=== PATIENT | male | born 1955 | race Caucasian/White ===

== ENCOUNTER 2017-05-23 13:42 | Emergency (ER) | payer OTHER ==
[2017-05-23] MEDS ORDERED: GLUCAGON,HUMAN RECOMB 1 MG INJ SUBCUT ONE (14:26)
--- NOTE | 2017-05-23 14:29 | ER Document Report ---
ED Oral Problem - General Chief Complaint: Sore Throat Stated Complaint: HARD TO SWALLOW Time Seen by Provider: 05/23/17 14:10 Mode of Arrival: Ambulatory Information source: Patient Notes: Patient is a 61-year-old male who presents to the ER today for a feeling of something stuck in his throat. Patient was eating beef tips last night and states that he choked a little bit, getting some stuck in his throat. He states that since that time he has been unable to drink any liquid and keep it down, feeling like something is making it stop on the way down and he has to spit it back up. he denies any drooling, shortness of breath or trouble breathing. He states it is not very painful, just uncomfortable. TRAVEL OUTSIDE OF THE [place] IN LAST 30 DAYS: No - Related Data Allergies/Adverse Reactions: No Known Allergies Allergy (Unverified 05/23/17 13:57) Home Medications: Current Home Medications Unobtainable [Unobtainable] 05/23/17 [History] Past Medical History - General Information source: Patient - Social History Smoking Status: Never Smoker Chew tobacco use (# tins/day): No Frequency of alcohol use: None Drug Abuse: None Family History: Reviewed & Not Pertinent - Past Medical History Cardiac Medical History: Reports: Hx Hypertension Renal/ Medical History: Denies: Hx Peritoneal Dialysis Surgical Hx: Negative - Immunizations Hx Diphtheria, Pertussis, Tetanus Vaccination: Yes Review of Systems - Review of Systems Constitutional: No symptoms reported EENT: See HPI Cardiovascular: No symptoms reported Respiratory: No symptoms reported Gastrointestinal: No symptoms reported Genitourinary: No symptoms reported Male Genitourinary: No symptoms reported Musculoskeletal: No symptoms reported Skin: No symptoms reported Hematologic/Lymphatic: No symptoms reported Neurological/Psychological: No symptoms reported Physical Exam - Vital signs Vitals: Temp Pulse Resp BP Pulse Ox 98.3 F 70 18 120/71 98 05/23/17 13:56 05/23/17 13:56 05/23/17 13:56 05/23/17 13:56 05/23/17 13:56 - Notes Notes: PHYSICAL EXAMINATION: GENERAL: Well-appearing and in no acute distress. HEAD: Atraumatic, normocephalic. EYES: Pupils equal round and reactive to light, extraocular movements intact, sclera anicteric, conjunctiva are normal. ENT: airway patent NECK: Normal range of motion, supple without lymphadenopathy LUNGS: CTAB and equal. No wheezes rales or rhonchi. HEART: Regular rate and rhythm without murmurs ABDOMEN: Soft, no tenderness. No guarding, no rebound BACK: no vertebral tenderness, normal ROM GI/: no CVA tenderness EXTREMITIES: Normal range of motion, no pitting edema. No cyanosis. NEUROLOGICAL: Cranial nerves grossly intact. Normal sensory/motor exams. PSYCH: Normal mood, normal affect. SKIN: Warm, Dry, normal turgor, no rashes or lesions noted Course - Re-evaluation Re-evalutation: 05/23/17 17:07 pt given glucagon, feels better, swallowed an entire pepsi and some water slowly successfully and wants to go home. - Vital Signs Vital signs: Temp Pulse Resp BP Pulse Ox 98.4 F 63 16 122/85 100 05/23/17 17:20 05/23/17 17:20 05/23/17 17:20 05/23/17 17:20 05/23/17 17:20 Discharge - Discharge Clinical Impression: Foreign body in throat Qualifiers: Encounter type: initial encounter Qualified Code(s): T17.208A - Unspecified foreign body in pharynx causing other injury, initial encounter Condition: Stable Disposition: HOME, SELF-CARE Additional Instructions: Return immediately for any new or worsening symptoms. Follow up with primary care provider, call tomorrow to make followup appointment.
--- NOTE | 2017-05-23 15:49 | RADIOLOGY REPORT (SQ) ---
EXAM DESCRIPTION: CHEST PA/LAT COMPLETED DATE/TIME: 05/23/2017 3:35 pm REASON FOR STUDY: something stuck in throat feeling COMPARISON: None. EXAM PARAMETERS: NUMBER OF VIEWS: two views TECHNIQUE: Digital Frontal and Lateral radiographic views of the chest acquired. RADIATION DOSE: NA LIMITATIONS: none FINDINGS: LUNGS AND PLEURA: No opacities, masses or pneumothorax. No pleural effusion. MEDIASTINUM AND HILAR STRUCTURES: No masses or contour abnormalities. HEART AND VASCULAR STRUCTURES: Heart normal size. No evidence for failure. BONES: No acute findings. HARDWARE: None in the chest. OTHER: No other significant finding. IMPRESSION: NO SIGNIFICANT RADIOGRAPHIC FINDING IN THE CHEST. TECHNICAL DOCUMENTATION: JOB ID: [id number] [employer]- All Rights Reserved
[2017-05-23 17:21] VITALS: BP 122/85
== END 2017-05-23 17:39 | disposition home or self-care (01) ==
LOC: ER 13:42
DX: T17.208A Unspecified foreign body in pharynx causing other injury, initial encounter (principal); I10 Essential (primary) hypertension; X58.XXXA Exposure to other specified factors, initial encounter
CPT/HCPCS: 99283; 96372; 71020; J1610

== ENCOUNTER 2018-01-28 09:29 | Day surgery (SDC) | payer OTHER ==
[~2018-01-28 09:29] MED LIST: KETOROLAC TROMETHAMINE 0.45% 4 DROP/0.4 ML DROPERETTE OS PRN
[2018-01-28] MEDS ORDERED: TOBRAMYCIN SULFATE/DEXAMETH OPH OINTMENT 3.5 GM ONE (09:39)
[2018-01-28] MEDS ORDERED: LIDOCAINE 1% INJ-PF (10 MG/ML) 30 ML SDV ONE (09:39)
[2018-01-28] MEDS ORDERED: EPINEPHRINE INJ/PF 1 MG/1 ML AMPULE ONE (09:39)
[2018-01-28] MEDS ORDERED: CHONDR SU A NA/HYALUR INTRAOC KIT (SURGICARE) ONE (09:40)
[2018-01-28] MEDS: BESIFLOXACIN HCL 0.6% OPH SUSP 5 ML BOTTLE OS PRN ×3 (09:51→10:47)
[2018-01-28] MEDS: CYCLOPENTOLATE 0.2%/PHENYLEPHRINE 1% OPH SOLN 2 ML OS PRN ×3 (09:51→10:14)
[2018-01-28] MEDS: TROPICAMIDE 1% OPH SOLN 3 ML OS PRN ×3 (09:51→10:14)
[2018-01-28] MEDS: TETRACAINE HCL 0.5% OPH SOLN 0.6 ML DROPERETTE OS PRN ×3 (09:52→10:23)
[2018-01-28] MEDS ORDERED: FENTANYL CITRATE INJ/PF 100 MCG/2 ML AMPUL ONE (09:56)
[2018-01-28] MEDS ORDERED: MIDAZOLAM 2 MG/2 ML INJ ONE (09:56)
== END 2018-01-28 11:33 | disposition home or self-care (01) ==
LOC: SC 09:29
PROVIDERS: ATTEND Ophthalmology
DX: H25.12 Age-related nuclear cataract, left eye (principal); M19.90 Unspecified osteoarthritis, unspecified site; I10 Essential (primary) hypertension; Z79.899 Other long term (current) drug therapy; Z87.891 Personal history of nicotine dependence
CPT/HCPCS: 66984; V2630; J2250; J3490 ×3; J0171; J3010; 142

== ENCOUNTER 2018-03-04 07:43 | Day surgery (SDC) | payer OTHER ==
[~2018-03-04 07:43] MED LIST changes: +BESIFLOXACIN HCL 0.6% OPH SUSP 5 ML BOTTLE OD PRN; +CHONDR SU A NA/HYALUR INTRAOC KIT (SURGICARE) ONE; +CYCLOPENTOLATE 0.2%/PHENYLEPHRINE 1% OPH SOLN 2 ML OD PRN; +EPINEPHRINE INJ/PF 1 MG/1 ML AMPULE ONE; +FENTANYL CITRATE INJ/PF 100 MCG/2 ML AMPUL ONE; +KETOROLAC TROMETHAMINE 0.45% 4 DROP/0.4 ML DROPERETTE OD PRN; -KETOROLAC TROMETHAMINE 0.45% 4 DROP/0.4 ML DROPERETTE OS PRN; +LIDOCAINE 1% INJ-PF (10 MG/ML) 30 ML SDV ONE; +MIDAZOLAM 2 MG/2 ML INJ ONE; +ONDANSETRON HCL INJ/PF 4 MG/2 ML SDV ONE; +TETRACAINE HCL 0.5% OPH SOLN 0.6 ML DROPERETTE OD PRN; +TOBRAMYCIN SULFATE/DEXAMETH OPH OINTMENT 3.5 GM ONE; +TROPICAMIDE 1% OPH SOLN 3 ML OD PRN
[2018-03-04] MEDS ORDERED: KETOROLAC TROMETHAMINE 0.45% 4 DROP/0.4 ML DROPERETTE ONE (07:51)
[2018-03-04] MEDS ORDERED: TETRACAINE HCL 0.5% OPH SOLN 0.6 ML DROPERETTE ONE (07:51)
[2018-03-04] MEDS: TROPICAMIDE 1% OPH SOLN 3 ML OD PRN ×3 (07:58→08:18)
[2018-03-04] MEDS: BESIFLOXACIN HCL 0.6% OPH SUSP 5 ML BOTTLE OD PRN ×3 (07:58→09:29)
[2018-03-04] MEDS: CYCLOPENTOLATE 0.2%/PHENYLEPHRINE 1% OPH SOLN 2 ML OD PRN ×3 (07:58→08:18)
[2018-03-04] MEDS: TETRACAINE HCL 0.5% OPH SOLN 0.6 ML DROPERETTE OD PRN ×3 (07:59→09:10)
[2018-03-04] MEDS ORDERED: KETOROLAC TROMETHAMINE 0.45% 4 DROP/0.4 ML DROPERETTE OD PRN (08:13)
[2018-03-05] MEDS ORDERED: BESIFLOXACIN HCL 0.6% OPH SUSP 5 ML BOTTLE OD PRN (05:00)
[2018-03-05] MEDS ORDERED: TROPICAMIDE 1% OPH SOLN 3 ML OD PRN (05:00)
[2018-03-05] MEDS ORDERED: TETRACAINE HCL 0.5% OPH SOLN 0.6 ML DROPERETTE OD PRN (05:00)
[2018-03-05] MEDS ORDERED: CYCLOPENTOLATE 0.2%/PHENYLEPHRINE 1% OPH SOLN 2 ML OD PRN (05:00)
[2018-03-05] MEDS ORDERED: KETOROLAC TROMETHAMINE 0.45% 4 DROP/0.4 ML DROPERETTE OD PRN (05:00)
== END 2018-03-04 10:08 | disposition home or self-care (01) ==
LOC: SC 07:43
PROVIDERS: ATTEND Ophthalmology
DX: H25.11 Age-related nuclear cataract, right eye (principal); Z98.42 Cataract extraction status, left eye; M19.90 Unspecified osteoarthritis, unspecified site; I10 Essential (primary) hypertension; Z79.899 Other long term (current) drug therapy; Z87.891 Personal history of nicotine dependence
CPT/HCPCS: 66984; V2630; J2250; J3490 ×3; J0171; J3010; J2405; 142

== ENCOUNTER 2018-03-25 08:58 | Inpatient (IN) | payer OTHER ==
[~2018-03-25 08:58] MED LIST changes: -BESIFLOXACIN HCL 0.6% OPH SUSP 5 ML BOTTLE OD PRN; -CHONDR SU A NA/HYALUR INTRAOC KIT (SURGICARE) ONE; -CYCLOPENTOLATE 0.2%/PHENYLEPHRINE 1% OPH SOLN 2 ML OD PRN; -EPINEPHRINE INJ/PF 1 MG/1 ML AMPULE ONE; -FENTANYL CITRATE INJ/PF 100 MCG/2 ML AMPUL ONE; +GLYCOPYRROLATE INJ 0.4 MG/2 ML VIAL ONE; -KETOROLAC TROMETHAMINE 0.45% 4 DROP/0.4 ML DROPERETTE OD PRN; -LIDOCAINE 1% INJ-PF (10 MG/ML) 30 ML SDV ONE; -MIDAZOLAM 2 MG/2 ML INJ ONE; +NEOSTIGMINE METHYLSULFATE 10 MG/10 ML VIAL ONE; +ROCURONIUM BROMIDE INJ 50 MG/5 ML VIAL IV ONE; +SUCCINYLCHOLINE CHLORIDE INJ 200 MG/10 ML VIAL ONE; -TETRACAINE HCL 0.5% OPH SOLN 0.6 ML DROPERETTE OD PRN; -TOBRAMYCIN SULFATE/DEXAMETH OPH OINTMENT 3.5 GM ONE; -TROPICAMIDE 1% OPH SOLN 3 ML OD PRN
--- NOTE | 2018-03-25 09:13 | ER Document Report ---
ED General - General Chief Complaint: Flank Pain Stated Complaint: URINARY ISSUE Time Seen by Provider: 03/25/18 09:12 Mode of Arrival: Medic Information source: Patient TRAVEL OUTSIDE OF THE [place] IN LAST 30 DAYS: No - HPI Notes: 62-year-old male with a past medical history of hypertension presents to the emergency room today with complaints of fever, right lower quadrant abdominal pain, right sided sciatica, flank pain by ambulance. Patient states he was seen at the OR 3 days ago for a UTI, started on oral Bactrim. Patient was given 975 of Tylenol and ambulance. Reports pain is been getting progressively worse, 9 out of 10 sharp and shooting to right lower quadrant that radiates to right-sided flank area and left-sided flank area. Patient states he did fall while he was at work approximately 1 week ago, states back pain started then with his right-sided numbness and tingling. Did not get checked out by medical provider after he fell. Patient has taken 2 days worth of oral Bactrim for his UTI. States he did not have any further testing done at the OR. Patient states he is been "dribbling" with urination denies any penile drainage. Denies chest pain,palpitations, shortness of breath, dyspnea, nausea, vomiting , diarrhea, hematuria,blurred vision, double vision, loss of vision, speech changes, LH, dizziness, syncope, headaches, wheezing, ST, URI, neck pain, weakness, bowel or bladder dysfunction, saddle anesthesia, numbness or tingling in bilateral upper or lower extremities equally, muscle paralysis, weakness in bilateral upper or lower extremities equally or rash. Denies IV drug use. - Related Data Allergies/Adverse Reactions: No Known Allergies Allergy (Verified 03/04/18 07:54) Past Medical History - General Information source: Patient - Social History Smoking Status: Never Smoker Family History: Reviewed & Not Pertinent - Past Medical History Cardiac Medical History: Reports: Hx Hypertension Denies: Hx Heart Attack Pulmonary Medical History: Denies: Hx Asthma Neurological Medical History: Denies: Hx Cerebrovascular Accident, Hx Seizures Renal/ Medical History: Denies: Hx Peritoneal Dialysis GI Medical History: Denies: Hx Hepatitis, Hx Hiatal Hernia, Hx Ulcer Infectious Medical History: Denies: Hx Hepatitis Past Surgical History: Denies: Hx Open Heart Surgery, Hx Pacemaker - Immunizations Hx Diphtheria, Pertussis, Tetanus Vaccination: Yes Review of Systems - Review of Systems Constitutional: See HPI EENT: No symptoms reported Cardiovascular: No symptoms reported Respiratory: No symptoms reported Gastrointestinal: See HPI Genitourinary: See HPI Male Genitourinary: No symptoms reported Musculoskeletal: No symptoms reported Skin: No symptoms reported Hematologic/Lymphatic: No symptoms reported Neurological/Psychological: No symptoms reported Physical Exam - Vital signs Vitals: Temp Pulse Resp BP Pulse Ox 98.8 F 94 18 128/83 H 94 03/25/18 09:06 03/25/18 09:06 03/25/18 09:06 03/25/18 09:06 03/25/18 09:06 - Notes Notes: PHYSICAL EXAMINATION: GENERAL: Well-appearing, well-nourished and in no acute distress. HEAD: Atraumatic, normocephalic. EYES: Pupils equal round and reactive to light, extraocular movements intact, sclera anicteric, conjunctiva are normal. ENT: Nares patent, oropharynx clear without exudates. Moist mucous membranes. NECK: Normal range of motion, supple without lymphadenopathy LUNGS: Breath sounds clear to auscultation bilaterally and equal. No wheezes rales or rhonchi. HEART: Regular rate and rhythm without murmurs ABDOMEN: Bowel sounds heard in all quadrants Soft, nondistended abdomen. Right lower quadrant tenderness on palpation with rebound. CVA tenderness right greater than left bilaterally with slight guarding, no rebound. no masses appreciated. Musculoskeletal: Normal range of motion, no pitting or edema. No cyanosis. NEUROLOGICAL: Cranial nerves grossly intact. Normal speech, normal gait. Normal sensory, motor exams PSYCH: Normal mood, normal affect. SKIN: Warm, Dry, normal turgor, no rashes or lesions noted. Course - Re-evaluation Re-evalutation: 03/25/18 10:59 62-year-old male who had a fever at home presents for evaluation of right lower quadrant abdominal pain with bilateral flank pain is slightly tachycardic via EMS today. Patient's fever did reduce with 975 of oral Tylenol. given broad- spectrum antibiotics due to meeting SIRS criteria with fever, tachycardia. chest x-ray negative for any acute findings. EKG shows a heart rate of 85, nonspecific ST segment elevations. No STEMI. CBC with a leukocytosis of 17.4 with a shift. Lactic is 1.2. His blood gas shows he is in respiratory alkalosis, creatinine 1.64, BUN normal. cardiac enzymes unremarkable. Urinalysis shows nitrates, hematuria with proteinuria. CT abdomen pelvis with IV and oral contrast shows a right lower lobe infiltrate and pleural effusion as well as a right retroperitoneal air with fluid seen in posterior right colon and cecum that extends up to the liver. Dr. David gonzalez, surgeon, consulted at 1245 for surgical consult for emergent surgery for questionable perforated colon and/or appendix. Dr. Gonzalez at bedside to evaluate patient. Will go to the OR for emergent surgery. All questions and concerns answered by this provider for patient. Patient verbalized understanding of plan of care and agree with plan of care. Patient was admitted under surgery. - Vital Signs Vital signs: Temp Pulse Resp BP Pulse Ox 99.6 F 94 40 H 138/63 H 87 L 03/25/18 14:01 03/25/18 09:06 03/25/18 14:01 03/25/18 14:01 03/25/18 14:01 - Laboratory Result Diagrams: 03/25/18 09:03 03/25/18 09:03 Laboratory results interpreted by me: 03/25/18 03/25/18 03/25/18 09:03 09:03 09:03 WBC 17.4 H RBC 3.88 L Hgb 12.2 L Hct 36.0 L RDW 14.4 H Seg Neuts % (Manual) 89 H Lymphocytes % (Manual) 2 L Abs Neuts (Manual) 15.5 H Abs Lymphs (Manual) 0.3 L Abs Monocytes (Manual) 1.6 H PT 16.0 H VBG pH VBG pCO2 VBG HCO3 Sodium 134.0 L Carbon Dioxide 15 L Creatinine 1.64 H Est GFR ( Amer) 52 L Est GFR (Non-Af Amer) 43 L Glucose 225 H Direct Bilirubin 0.6 H Alkaline Phosphatase 149 H Creatine Kinase 42 L Albumin 3.2 L Urine Protein Urine Nitrite Urine Urobilinogen 03/25/18 03/25/18 09:05 10:05 WBC RBC Hgb Hct RDW Seg Neuts % (Manual) Lymphocytes % (Manual) Abs Neuts (Manual) Abs Lymphs (Manual) Abs Monocytes (Manual) PT VBG pH 7.43 H VBG pCO2 25.7 L VBG HCO3 16.5 L Sodium Carbon Dioxide Creatinine Est GFR ( Amer) Est GFR (Non-Af Amer) Glucose Direct Bilirubin Alkaline Phosphatase Creatine Kinase Albumin Urine Protein 100 H Urine Nitrite POSITIVE H Urine Urobilinogen 4.0 H Discharge - Discharge Clinical Impression: Perforated appendicitis, Peritoneal free air Leukocytosis Qualifiers: Leukocytosis type: bandemia Qualified Code(s): D72.825 - Bandemia Clinical Impression: (Ruled Out): Hemolytic anemia Condition: Good Disposition: ADMITTED INPATIENT Admitting Provider: Surgicalist - Dr. Hernandez [facility] Unit Admitted: OR
[2018-03-25] MEDS ORDERED: MORPHINE SULFATE 10 MG/ML INJ IV ONE (09:25)
[2018-03-25 09:26] LABS: HEMOGLOBIN 12.2 g/dL (13.5-17.0); MEAN CORPUSCULAR HEMOGLOBIN 31.4 pg (27.0-33.4); MEAN CORPUSCULAR HGB CONC 33.8 g/dL (32.0-36.0); MEAN CORPUSCULAR VOLUME 93 fl (80-97); PLATELET COUNT 298 10^3/uL (150-450); RED BLOOD COUNT 3.88 10^6/uL (4.35-5.55); RED CELL DISTRIBUTION WIDTH 14.4 % (11.5-14.0); WHITE BLOOD COUNT 17.4 10^3/uL (4.0-10.5)
[2018-03-25] MEDS ORDERED: CEFEPIME 1 GM/D5W RTU 1 GM/50 ML RTUPB IV ONE (09:26)
[2018-03-25] MEDS ORDERED: PIPERACILLIN/TAZOBACTAM 3.375 GM VIAL IV ONE (09:26)
[2018-03-25 09:29] LABS: INTERNATIONAL RATION (INR) 1.22
[2018-03-25 09:29] LABS: APPEARANCE,URINE SLIGHTLY-CLOUDY; BILIRUBIN,URINE NEGATIVE (NEGATIVE); COLOR,URINE ORANGE; GLUCOSE, URINE NEGATIVE (NEGATIVE); KETONES,URINE NEGATIVE (NEGATIVE); LEUKOCYTE ESTERASE,URINE NEGATIVE (NEGATIVE); NITRITE,URINE POSITIVE (NEGATIVE); PROTEIN,URINE 100 mg/dL (NEGATIVE)
[2018-03-25 09:45] LABS: ALANINE AMINOTRANSFERASE 33 U/L (21-72); ALBUMIN 3.2 g/dL (3.5-5.0); ALKALINE PHOSPHATASE 149 U/L (38-126); ANION GAP 17 (5-19); ASPARTATE AMINO TRANSFERASE 28 U/L (17-59); BILIRUBIN,DIRECT 0.6 mg/dL (0.0-0.4); BILIRUBIN,TOTAL 1.1 mg/dL (0.2-1.3); BLOOD UREA NITROGEN 20 mg/dL (7-20); CALCIUM 8.9 mg/dL (8.4-10.2); CARBON DIOXIDE 15 mmol/L (22-30); CHLORIDE 102 mmol/L (98-107); CREATINE KINASE 42 U/L (55-170); GLUCOSE 225 mg/dL (75-110); POTASSIUM 4.7 mmol/L (3.6-5.0); TOTAL PROTEIN 6.5 g/dL (6.3-8.2)
[2018-03-25 10:06] LABS: ABSOLUTE LYMPHOCYTES# (MANUAL) 0.3 10^3/uL (0.5-4.7); ABSOLUTE MONOCYTES # (MANUAL) 1.6 10^3/uL (0.1-1.4); ABSOLUTE NEUTROPHILS# (MANUAL) 15.5 10^3/uL (1.7-8.2); ANISOCYTOSIS SLIGHT; BASOPHILS % (MANUAL) 0 % (0-2); EOSINOPHILS % (MANUAL) 0 % (0-6); LYMPHOCYTES % (MANUAL) 2 % (13-45); MONOCYTES % (MANUAL) 9 % (3-13); PLATELET COMMENT ADEQUATE; SEGMENTED NEUTROPHILS % (MAN) 89 % (42-78); TOTAL CELLS COUNTED 100
[2018-03-25] MEDS: NORMAL SALINE 1000 ML 1,000 ML IV PRN ×2 (10:16→10:53)
[2018-03-25 10:31] LABS: CREATINE KINASE MB 0.36 ng/mL (<4.55)
[2018-03-25 10:32] LABS: TROPONIN I < 0.012 ng/mL
[2018-03-25 10:38] LABS: VENOUS BLOOD HCO3 16.5 mmol/L (20-32); VENOUS BLOOD PCO2 25.7 mmHg (35-63); VENOUS BLOOD PH 7.43 (7.30-7.42)
--- NOTE | 2018-03-25 10:39 | RADIOLOGY REPORT (SQ) ---
EXAM DESCRIPTION: CHEST SINGLE VIEW COMPLETED DATE/TIME: 03/25/2018 10:25 am REASON FOR STUDY: fever COMPARISON: 05/23/2017 EXAM PARAMETERS: NUMBER OF VIEWS: One view. TECHNIQUE: Single frontal radiographic view of the chest acquired. RADIATION DOSE: NA LIMITATIONS: Shallow inspiration FINDINGS: LUNGS AND PLEURA: No opacities, masses or pneumothorax. No pleural effusion. MEDIASTINUM AND HILAR STRUCTURES: No masses. Contour normal. HEART AND VASCULAR STRUCTURES: Heart accentuated by shallow inspiration. No overt CHF. BONES: No acute findings. HARDWARE: None in the chest. OTHER: No other significant finding. IMPRESSION: The lung haynes are clear. TECHNICAL DOCUMENTATION: JOB ID: [id number] [employer]- All Rights Reserved Reading location - IP/workstation name: [email or web address]
[2018-03-25] MEDS ORDERED: MORPHINE SULFATE 10 MG/ML INJ IV PRN ×2 (10:51→15:13)
[2018-03-25] MEDS ORDERED: NORMAL SALINE 1000 ML 1,000 ML IV PRN (12:49)
--- NOTE | 2018-03-25 13:10 | RADIOLOGY REPORT (SQ) ---
EXAM DESCRIPTION: CT ABD/PELVIS WITH IV ORAL COMPLETED DATE/TIME: 03/25/2018 12:14 pm REASON FOR STUDY: RLQ abd pain with fever 102, bilat flank pain COMPARISON: None. TECHNIQUE: CT scan of the abdomen and pelvis performed using helical scanning technique with dynamic intravenous contrast injection. No oral contrast. Images reviewed with lung, soft tissue, and bone windows. Reconstructed coronal and sagittal MPR images reviewed. Delayed images for evaluation of the urinary system also acquired. All images stored on PACS. All CT scanners at this facility use dose modulation, iterative reconstruction, and/or weight based d osing when appropriate to reduce radiation dose to as low as reasonably achievable (ALARA). [facility]: Dose Right [facility]: CareDose [facility]: Dose Right [facility]: Teradose 4D [facility]: [place] CONTRAST TYPE AND DOSE: contrast/concentration: Isovue 370.00 mg/ml; Total Contrast Delivered: 100.0 ml; Total Saline Delivered: 70.0 ml 100 mL Isovue 370 intravenously RENAL FUNCTION: Creatinine 1.6 RADIATION DOSE: CT Rad equipment meets quality standard of care and radiation dose reduction techniq ues were employed. CTDIvol: 5.1 - 6.3 mGy. DLP: 646 mGy-cm.. LIMITATIONS: None. FINDINGS: LOWER CHEST: Patchy right basilar infiltrate with trace pleural fluid. LIVER: Normal size. No masses. No dilated ducts. SPLEEN: Normal size. No focal lesions. PANCREAS: No masses. No significant calcifications. No adjacent inflammation or peripancreatic fluid collections. Pancreatic duct not dilated. GALLBLADDER: No identified stones by CT criteria. No inflammatory changes to suggest cholecystitis. ADRENAL GLANDS: No significant masses or asymmetry. RIGHT KIDNEY AND URETER: No solid masses. No significant calcifications. No hydronephrosis or hyd roureter. LEFT KIDNEY AND URETER: No solid masses. No significant calcifications. No hydronephrosis or hydr oureter. AORTA AND VESSELS: No AAA. RETROPERITONEUM: On the right retroperitoneal air and fluid is seen posterior to the right colon, ext ending from the cecum upper to the posterior aspect of the liver. At the inferior portion, a 5.2 x 3.5 cm air and fluid collection is seen. Inferior to this portions of and intact appendix are seen. Etiologies may include a perforated appendix or colon. No obvious diverticulae are seen and the pr oximal portion of the appendix unremarkable. No free intraperitoneal air identified. BOWEL AND PERITONEAL CAVITY: see retroperitoneum. Posterior aspect of the right colon contiguous wi th retroperitoneal fluid and air. Nonobstructive bowel appearance. APPENDIX: Proximal portion unremarkable. Distal portion continuous with retroperitoneal air and flui d. PELVIS: No mass. No free fluid. Normal bladder. ABDOMINAL WALL: No masses. No hernias. BONES: No significant or acute findings. OTHER: No other significant finding. IMPRESSION: On the right retroperitoneal air and fluid is seen posterior to the right colon and cecu m, extending upward to the posterior aspect the liver. More focal 5.3 x 3.5 cm collection inferiorly . Right basilar RLL infiltrate and small right pleural effusion. COMMENT: Findings discussed with referringALFREDA Pearson TECHNICAL DOCUMENTATION: JOB ID: [id number] Quality ID # [id number]: Final reports with documentation of one or more dose reduction techniques (e.g., Au tomated exposure control, adjustment of the mA and/or kV according to patient size, use of iterative reconstruction technique) 2010 [employer]- All Rights Reserved Reading location - IP/workstation name: [email or web address]
--- NOTE | 2018-03-25 13:11 | EKG REPORT ---
SEVERITY:- ABNORMAL ECG - SINUS RHYTHM LVH WITH SECONDARY T WAVE CHANGES : Confirmed by: Jovani Warner MD 25-Mar-2018 13:10:39
[2018-03-25] MEDS ORDERED: BUPIVACAINE HCL 0.25 % INJ/PF (2.5 MG/1 ML) 30 ML VIAL ONE (13:49)
--- NOTE | 2018-03-25 14:16 | PDOC H&P ---
History of Present Illness Admission Date/PCP: 03/25/18 13:47 NO LOCALMD History of Present Illness: AMALIA SMITH is a 62 year old male with a 24 hour history of right sided abdominal pain. His pain is sharp and stabbing. It is constant. The patient denies any fevers, chills, nausea, vomiting, chest pain, shortness of breath, headache, dizziness. Patient has had noted malaise and fatigue. He presented to the emergency department due to excruciating, unrelenting pain. Nothing makes his pain better. Movement and palpation make his pain worse. Past Medical History Cardiac Medical History: Reports: Hypertension Denies: Myocardial Infarction Pulmonary Medical History: Denies: Asthma Neurological Medical History: Denies: Seizures GI Medical History: Denies: Hepatitis, Hiatal Hernia Hematology: Denies: Anemia, Sickle Cell Disease Past Surgical History Past Surgical History: Reports: Other - Reconstructive surgery for a broken jaw Denies: Pacemaker Social History Smoking Status: Never Smoker Frequency of Alcohol Use: Occasional Hx Recreational Drug Use: No Family History Family History: Reviewed & Not Pertinent Parental Family History Reviewed: Yes Children Family History Reviewed: Yes Sibling(s) Family History Reviewed.: Yes Medication/Allergy Home Medications: Acetaminophen [Tylenol Extra Strength] 500 mg PO Q4 PRN 01/28/18 Amlodipine Besylate 10 mg PO DAILY 01/28/18 Atenolol 100 mg PO DAILY 01/28/18 Diclofenac Sodium 75 mg PO DAILY 01/28/18 Lisinopril 40 mg PO DAILY 01/28/18 Allergies/Adverse Reactions: No Known Allergies Allergy (Verified 03/04/18 07:54) Review of Systems Constitutional: PRESENT: fatigue. ABSENT: chills, fever(s) Eyes: ABSENT: visual disturbances Ears: ABSENT: hearing changes Nose, Mouth, and Throat: ABSENT: mouth pain Cardiovascular: ABSENT: dyspnea on exertion, palpitations Respiratory: ABSENT: cough, dyspnea, hemoptysis Gastrointestinal: PRESENT: abdominal pain, bloating. ABSENT: nausea, vomiting Genitourinary: ABSENT: dysuria Musculoskeletal: ABSENT: back pain, deformity Integumentary: ABSENT: lesions, pruritus, rash Neurological: ABSENT: abnormal movements, abnormal speech, confusion, dizziness Psychiatric: ABSENT: anxiety, depression, hallucinations Endocrine: ABSENT: cold intolerance, heat intolerance Hematologic/Lymphatic: ABSENT: easy bleeding, easy bruising Physical Exam Vital Signs: Temp Pulse Resp BP Pulse Ox 98.8 F 94 18 128/83 H 94 03/25/18 09:06 03/25/18 09:06 03/25/18 11:00 03/25/18 09:06 03/25/18 11:00 General appearance: PRESENT: mild distress - Abdominal, well-developed, well- nourished Head exam: PRESENT: atraumatic, normocephalic Eye exam: PRESENT: EOMI, PERRLA Mouth exam: PRESENT: moist, neck supple Teeth exam: PRESENT: poor dentation Neck exam: ABSENT: lymphadenopathy, meningismus, tenderness, thyromegaly, tracheal deviation Respiratory exam: PRESENT: clear to auscultation sabina. ABSENT: chest wall tenderness, rhonchi, stridor, tachypnea Cardiovascular exam: PRESENT: RRR Pulses: PRESENT: normal radial pulses Vascular exam: PRESENT: normal capillary refill. ABSENT: pallor GI/Abdominal exam: PRESENT: distended, guarding, tenderness - Right lateral abdomen and flank Extremities exam: ABSENT: clubbing, joint swelling Musculoskeletal exam: ABSENT: tenderness Neurological exam: PRESENT: alert, awake, oriented to person, oriented to place , oriented to time, oriented to situation, CN II-XII grossly intact Psychiatric exam: PRESENT: normal mood. ABSENT: agitated, anxious, depressed Skin exam: ABSENT: cyanosis, erythema, mottled Results Impressions: Abdomen/Pelvis CT 03/25/18 00:00 IMPRESSION: On the right retroperitoneal air and fluid is seen posterior to the right colon and cecum, extending upward to the posterior aspect the liver. More focal 5.3 x 3.5 cm collection inferiorly. Right basilar RLL infiltrate and small right pleural effusion. Chest X-Ray 03/25/18 09:28 IMPRESSION: The lung haynes are clear. Assessment & Plan - Diagnosis (1) Perforated appendicitis Is this a current diagnosis for this admission?: Yes - Inpatient Certification I certify that my determination is in accordance with my understanding of Medicare's requirements for reasonable and necessary INPATIENT services [42 CFR 412.3e].: Yes Medical Necessity: Need for IV Antibiotics, Need for Surgery - Plan Summary Plan Summary: This is a 62-year-old male with right-sided abdominal pain. He is undergone CT scan, which I have reviewed the images personally. He has a large amount of air in the retroperitoneum, in the vicinity of his retrocecal appendix. This likely represents a perforation of his appendix, but could involve the right colon. I have recommended that the patient undergo exploratory laparotomy with possible appendectomy, possible right colon resection. This is been explained to the patient at length. The patient has agreed to the treatment plan. Risks/ benefits discussed, informed consent obtained, and all questions answered.
[2018-03-25] MEDS ORDERED: PROPOFOL INJ 200 MG/20 ML VIAL IV ONE (14:21)
[2018-03-25] MEDS ORDERED: MIDAZOLAM 2 MG/2 ML INJ ONE (14:21)
[2018-03-25] MEDS ORDERED: MORPHINE SULFATE 10 MG/ML INJ ONE (14:21)
[2018-03-25] MEDS ORDERED: FENTANYL CITRATE INJ/PF 250 MCG/5 ML AMPULE ONE (14:21)
[2018-03-25] MEDS ORDERED: ACETAMINOPHEN 100 ML IV ONE (14:21)
[2018-03-25] MEDS ORDERED: OXYCODONE-ACETAMINOPHEN 5-325 MG TABLET PO PRN ×2 (15:13)
[2018-03-25] MEDS ORDERED: PROMETHAZINE HCL INJ 25 MG/1 ML VIAL IV PRN ×2 (15:13)
[2018-03-25] MEDS ORDERED: MEPERIDINE HCL/PF INJ 25 MG/1 ML DISP.SYRIN IV PRN (15:13)
[2018-03-25] MEDS ORDERED: FENTANYL CITRATE INJ/PF 100 MCG/2 ML AMPUL IV PRN ×3 (15:13)
[2018-03-25] MEDS ORDERED: DIPHENHYDRAMINE HCL 50 MG/ML VIAL IV PRN (15:13)
[2018-03-25] MEDS ORDERED: DEXTROSE 40% GEL 15 GM TUBE PO PRN ×2 (15:57)
[2018-03-25] MEDS ORDERED: ONDANSETRON HCL INJ/PF 4 MG/2 ML SDV IV PRN (15:57)
[2018-03-25] MEDS ORDERED: GLUCAGON,HUMAN RECOMB 1 MG INJ SUBCUT PRN (15:57)
[2018-03-25] MEDS ORDERED: DEXTROSE 5%-LACTATED RINGERS 1,000 ML IV PRN (15:57)
[2018-03-25] MEDS ORDERED: DEXTROSE 50%-WATER 25 GM/50 ML DISP.SYRIN IV PRN ×2 (15:57)
[2018-03-25] MEDS ORDERED: PHENOL/SODIUM PHENOLATE 100 SPRAY/177 ML BOTTLE PO PRN (16:42)
[2018-03-25] MEDS: PIPERACILLIN SODIUM/TAZOBACTAM 3.375 GM in NORMAL SALINE 100 ML IV SCH ×2 (17:29→23:56)
[2018-03-25] MEDS: METOPROLOL TARTRATE PF/INJ 5 MG/5 ML SDV IV SCH ×2 (17:33→23:56)
--- NOTE | 2018-03-25 18:47 | Operative Report ---
Nonrecallable Operative Report DATE OF SURGERY: 03/25/18 PREOPERATIVE DIAGNOSIS: Acute abdomen POSTOPERATIVE DIAGNOSIS: 1. cecal perforation at the base of the appendix. 2. Retroperitoneal abscess OPERATION: 1. Exploratory laparotomy. 2. Right hemicolectomy. 3. Drainage of intra-abdominal abscess SURGEON: FAIZA WHITE ANESTHESIA: GA TISSUE REMOVED OR ALTERED: Right hemicolectomy COMPLICATIONS: Perforated cecum with extensive retroperitoneal abscess formation, necessitating right hemicolectomy ESTIMATED BLOOD LOSS: 50 cc PROCEDURE: Drains/implants: 15 [place] round Mark drain in the large retroperitoneal abscess cavity. Procedure in detail: After informed consent was obtained from the patient, he was laid in the supine position in the operating room. The area of the abdomen was prepped and draped in normal sterile fashion. A 10 blade scalpel was used to create an incision in the vertical midline. Dissection was carried down to the fascia using Bovie electrocautery and blunt dissection. The linea alba fascia was incised sharply. The abdomen was entered sharply. Upon entry into the abdomen feculent material and a foul smell was identified. Attention was turned to inspection of the right colon. There was a large inflammatory reaction in/around the cecum and ascending colon. The white line of Toldt was mobilized using a mixture of sharp and blunt dissection. Once this was performed, a large abscess cavity full of feculent material was found in the retroperitoneum extending from the right lower quadrant up toward the liver. The right colon was mobilized medially and the cecum was inspected. There was an obvious perforation on the cecum, at the base of the appendix. I surmise that perforated appendicitis caused these findings. The cecum and right colon were acutely inflamed due to the large abscess cavity. Secondary to this, it was felt that a right hemicolectomy would be necessary. The right colon was further mobilized. The ileocolic artery was clamped and ligated with 2-0 Vicryl suture ligatures. Once the ileocolic artery was divided, blunt dissection was used to mobilize the mesentery off the retroperitoneum. The mesentery was then divided using the LigaSure device. The terminal ileum was then divided using the STUART stapling device, as well as the proximal one third of the transverse colon. The right hemicolectomy specimen was then sent off the field, to pathology. Next, attention was turned to drainage of the large retroperitoneal abscess. The abscess was laid open and irrigated copiously. A drain was then placed within the abscess cavity. The drain was pulled out through a separate stab incision in the right lower quadrant. Attention was then turned to creation of the ileocolic anastomosis. The small bowel was brought in apposition to the transverse colon. The antimesenteric portions of the bowel were brought together and stapled using the STUART stapling device with blue loads. The resultant defect was closed using the same STUART stapler. 2 crotch stitches of 3-0 Vicryl were placed in simple interrupted fashion. The anastomosis was then tested and found to be free of leakage. When this was confirmed, the anastomosis was returned to the abdomen. The abdomen was again washed with multiple liters of saline solution. When this was complete, attention was turned to closure of the fascia. The midline fascia was reapproximated using #1 double-stranded PDS suture in simple running fashion. The skin was loosely approximated with skin shari, in order to pack the wound with Xeroform gauze. Dressings were then fashioned and the procedure was concluded. All sponge, instrument, and needle counts were correct 2. Condition: Fair.
[2018-03-25] MEDS: FAMOTIDINE INJ/PF 20 MG/2 ML SDV IV SCH (21:08)
[2018-03-25] MEDS: HYDROMORPHONE HCL INJ/PF 2 MG/ML AMPULE IV PRN (21:09)
[2018-03-26] MEDS: HYDROMORPHONE HCL INJ/PF 2 MG/ML AMPULE IV PRN ×4 (01:25→19:33)
[2018-03-26 04:18] LABS: ABSOLUTE LYMPHOCYTES (AUTO) 0.6 10^3/uL (0.5-4.7); ABSOLUTE MONOCYTES (AUTO) 0.8 10^3/uL (0.1-1.4); ABSOLUTE NEUT (AUTO) 9.7 10^3/uL (1.7-8.2); BASOPHILS % (AUTO) 0.4 % (0-2); EOSINOPHILS % (AUTO) 0.1 % (0-6); LYMPHOCYTES % (AUTO) 5.4 % (13-45); MEAN CORPUSCULAR HEMOGLOBIN 31.6 pg (27.0-33.4); MEAN CORPUSCULAR HGB CONC 33.3 g/dL (32.0-36.0); MEAN CORPUSCULAR VOLUME 95 fl (80-97); MONOCYTES % (AUTO) 7.4 % (3-13); PLATELET COUNT 289 10^3/uL (150-450); RED BLOOD COUNT 3.48 10^6/uL (4.35-5.55); RED CELL DISTRIBUTION WIDTH 14.9 % (11.5-14.0); SEGMENTED NEUTROPHILS % (AUTO) 86.7 % (42-78); TOTAL CELLS COUNTED % (AUTO) 100 %; WHITE BLOOD COUNT 11.2 10^3/uL (4.0-10.5)
[2018-03-26 04:27] LABS: ALANINE AMINOTRANSFERASE 19 U/L (21-72); ALBUMIN 2.1 g/dL (3.5-5.0); ALKALINE PHOSPHATASE 59 U/L (38-126); ANION GAP 11 (5-19); ASPARTATE AMINO TRANSFERASE 26 U/L (17-59); BILIRUBIN,TOTAL 2.4 mg/dL (0.2-1.3); BLOOD UREA NITROGEN 17 mg/dL (7-20); CALCIUM 7.7 mg/dL (8.4-10.2); CARBON DIOXIDE 17 mmol/L (22-30); CHLORIDE 108 mmol/L (98-107); GLUCOSE 222 mg/dL (75-110); POTASSIUM 5.1 mmol/L (3.6-5.0); SODIUM 136.1 mmol/L (137-145); TOTAL PROTEIN 4.7 g/dL (6.3-8.2)
[2018-03-26] MEDS: METOPROLOL TARTRATE PF/INJ 5 MG/5 ML SDV IV SCH ×4 (05:04→23:30)
[2018-03-26] MEDS: PIPERACILLIN SODIUM/TAZOBACTAM 3.375 GM in NORMAL SALINE 100 ML IV SCH ×4 (05:04→23:30)
[2018-03-26] MEDS: RINGERS SOLUTION,LACTATED 1,000 ML IV PRN ×2 (08:02→17:15)
[2018-03-26] MEDS: FAMOTIDINE INJ/PF 20 MG/2 ML SDV IV SCH ×2 (09:36→21:42)
[2018-03-26] MEDS: ENOXAPARIN SODIUM INJ 40 MG/0.4 ML DISP.SYRIN SUBCUT SCH (09:46)
--- NOTE | 2018-03-26 11:16 | PDOC PROGRESS REPORT ---
Subjective Progress Note for:: 03/26/18 Subjective:: Feels well. No complaints. Reason For Visit: PERFORATED CECUM,RETROPERITONEAL ABSCESS Physical Exam Vital Signs: Temp Pulse Resp BP Pulse Ox 99.6 F 88 21 H 121/63 94 03/26/18 08:00 03/26/18 09:22 03/26/18 09:38 03/26/18 09:38 03/26/18 09:38 Intake & Output 03/25/18 03/26/18 03/27/18 06:59 06:59 06:59 Intake Total 4943 Output Total 1480 325 Balance 3463 -325 Weight 66.8 kg General appearance: PRESENT: no acute distress, cooperative Respiratory exam: PRESENT: rhonchi Cardiovascular exam: PRESENT: RRR GI/Abdominal exam: PRESENT: other - Distended, mild diffuse abdominal tenderness. Wound packing removed. Wound looks very clean with no erythema. Extremities exam: PRESENT: other - No swelling Results Laboratory Results: 03/26/18 03:40 03/26/18 03:40 03/26/18 03/26/18 03:40 03:40 WBC 11.2 H RBC 3.48 L Hgb 11.0 L Hct 33.0 L MCV 95 MCH 31.6 MCHC 33.3 RDW 14.9 H Plt Count 289 Seg Neutrophils % 86.7 H Lymphocytes % 5.4 L Monocytes % 7.4 Eosinophils % 0.1 Basophils % 0.4 Absolute Neutrophils 9.7 H Absolute Lymphocytes 0.6 Absolute Monocytes 0.8 Absolute Eosinophils 0.0 Absolute Basophils 0.0 Sodium 136.1 L Potassium 5.1 H Chloride 108 H Carbon Dioxide 17 L Anion Gap 11 BUN 17 Creatinine 1.37 H Est GFR ( Amer) > 60 Est GFR (Non-Af Amer) 53 L Glucose 222 H Calcium 7.7 L Total Bilirubin 2.4 H AST 26 ALT 19 L Alkaline Phosphatase 59 Total Protein 4.7 L Albumin 2.1 L Impressions: Abdomen/Pelvis CT 03/25/18 00:00 IMPRESSION: On the right retroperitoneal air and fluid is seen posterior to the right colon and cecum, extending upward to the posterior aspect the liver. More focal 5.3 x 3.5 cm collection inferiorly. Right basilar RLL infiltrate and small right pleural effusion. Chest X-Ray 03/25/18 09:28 IMPRESSION: The lung haynes are clear. Assessment & Plan - Diagnosis (1) Perforated appendicitis Is this a current diagnosis for this admission?: Yes Plan: Status post right hemicolectomy. Patient looks reasonably well postoperatively. We will keep the patient in the ICU for close monitoring and fluid adjustments. Will try to get patient out of bed. Await bowel function.
[2018-03-26] MEDS ORDERED: ACETAMINOPHEN 325 MG TABLET ONE (15:46)
[2018-03-27] MEDS: HYDROMORPHONE HCL INJ/PF 2 MG/ML AMPULE IV PRN ×5 (00:12→23:10)
[2018-03-27] MEDS: RINGERS SOLUTION,LACTATED 1,000 ML IV PRN ×3 (01:48→20:20)
[2018-03-27 04:54] LABS: HEMATOCRIT 29.8 % (37.9-51.0); MEAN CORPUSCULAR HEMOGLOBIN 31.5 pg (27.0-33.4); MEAN CORPUSCULAR HGB CONC 33.7 g/dL (32.0-36.0); MEAN CORPUSCULAR VOLUME 94 fl (80-97); PLATELET COUNT 333 10^3/uL (150-450); RED BLOOD COUNT 3.19 10^6/uL (4.35-5.55); RED CELL DISTRIBUTION WIDTH 14.9 % (11.5-14.0); WHITE BLOOD COUNT 14.7 10^3/uL (4.0-10.5)
[2018-03-27 05:17] LABS: ANION GAP 10 (5-19); BLOOD UREA NITROGEN 18 mg/dL (7-20); CALCIUM 8.1 mg/dL (8.4-10.2); CARBON DIOXIDE 21 mmol/L (22-30); CHLORIDE 108 mmol/L (98-107); GLUCOSE 111 mg/dL (75-110); POTASSIUM 4.8 mmol/L (3.6-5.0); SODIUM 138.7 mmol/L (137-145)
[2018-03-27 05:21] LABS: ABSOLUTE MONOCYTES # (MANUAL) 0.7 10^3/uL (0.1-1.4); ABSOLUTE NEUTROPHILS# (MANUAL) 12.9 10^3/uL (1.7-8.2); BAND NEUTROPHILS % (MANUAL) 1 % (3-5); BASOPHILS % (MANUAL) 0 % (0-2); EOSINOPHILS % (MANUAL) 0 % (0-6); LYMPHOCYTES % (MANUAL) 7 % (13-45); MONOCYTES % (MANUAL) 5 % (3-13); SEGMENTED NEUTROPHILS % (MAN) 87 % (42-78); TOTAL CELLS COUNTED 100
[2018-03-27 05:22] LABS: ANISOCYTOSIS SLIGHT; PLATELET COMMENT ADEQUATE; TOXIC GRANULATION SLIGHT
[2018-03-27] MEDS: PIPERACILLIN SODIUM/TAZOBACTAM 3.375 GM in NORMAL SALINE 100 ML IV SCH ×4 (05:23→23:09)
[2018-03-27] MEDS: METOPROLOL TARTRATE PF/INJ 5 MG/5 ML SDV IV SCH ×4 (05:23→23:10)
[2018-03-27] MEDS: FAMOTIDINE INJ/PF 20 MG/2 ML SDV IV SCH ×2 (09:26→21:36)
[2018-03-27] MEDS: ENOXAPARIN SODIUM INJ 40 MG/0.4 ML DISP.SYRIN SUBCUT SCH (09:27)
[2018-03-27 11:50] LABS: BILIRUBIN,DIRECT 2.1 mg/dL (0.0-0.4)
[2018-03-27] MEDS: ACETAMINOPHEN SOLN 325 MG/10.15 ML UDCUP PO PRN (12:09)
--- NOTE | 2018-03-27 18:39 | PDOC PROGRESS REPORT ---
Subjective Progress Note for:: 03/27/18 Subjective:: Fells better. Claims abdomen less distended Reason For Visit: PERFORATED CECUM,RETROPERITONEAL ABSCESS Physical Exam Vital Signs: Temp Pulse Resp BP Pulse Ox 99.1 F 93 22 H 130/76 H 96 03/27/18 16:00 03/27/18 10:00 03/27/18 17:39 03/27/18 17:39 03/27/18 17:39 Intake & Output 03/26/18 03/27/18 03/28/18 06:59 06:59 06:59 Intake Total 4943 2974 Output Total 1480 1970 810 Balance 3463 1004 -810 Weight 66.8 kg 67.7 kg Exam: NGT 500 ccs total past 24 hrs but appears to be decreasing past few hrs Abd soft with some distention Claims he passed some flatus Results Laboratory Results: 03/27/18 04:15 03/27/18 04:15 03/27/18 03/27/18 04:15 04:15 WBC 14.7 H RBC 3.19 L Hgb 10.0 L Hct 29.8 L MCV 94 MCH 31.5 MCHC 33.7 RDW 14.9 H Plt Count 333 Seg Neutrophils % Not Reportable Lymphocytes % Not Reportable Monocytes % Not Reportable Eosinophils % Not Reportable Basophils % Not Reportable Absolute Neutrophils Not Reportable Absolute Lymphocytes Not Reportable Absolute Monocytes Not Reportable Absolute Eosinophils Not Reportable Absolute Basophils Not Reportable Sodium 138.7 Potassium 4.8 Chloride 108 H Carbon Dioxide 21 L Anion Gap 10 BUN 18 Creatinine 1.18 Est GFR ( Amer) > 60 Est GFR (Non-Af Amer) > 60 Glucose 111 H Calcium 8.1 L Impressions: Abdomen/Pelvis CT 03/25/18 00:00 IMPRESSION: On the right retroperitoneal air and fluid is seen posterior to the right colon and cecum, extending upward to the posterior aspect the liver. More focal 5.3 x 3.5 cm collection inferiorly. Right basilar RLL infiltrate and small right pleural effusion. Chest X-Ray 03/25/18 09:28 IMPRESSION: The lung haynes are clear. Assessment & Plan - Time Time Spent with patient: 15-24 minutes - Plan Summary Plan Summary: Keep NGT for now. OK to have ice chips,popsicle Continue IV antibiotics OK to downgrade to IMCU
[2018-03-27] MEDS: KETOROLAC TROMETHAMINE INJ/PF 30 MG/1 ML SDV IV PRN (20:20)
[2018-03-28] MEDS: PIPERACILLIN SODIUM/TAZOBACTAM 3.375 GM in NORMAL SALINE 100 ML IV SCH ×3 (05:18→18:22)
[2018-03-28] MEDS: METOPROLOL TARTRATE PF/INJ 5 MG/5 ML SDV IV SCH ×3 (05:18→18:22)
[2018-03-28] MEDS: RINGERS SOLUTION,LACTATED 1,000 ML IV PRN (06:32)
[2018-03-28] MEDS: KETOROLAC TROMETHAMINE INJ/PF 30 MG/1 ML SDV IV PRN ×2 (06:59→15:34)
[2018-03-28] MEDS: ENOXAPARIN SODIUM INJ 40 MG/0.4 ML DISP.SYRIN SUBCUT SCH (09:41)
[2018-03-28] MEDS: FAMOTIDINE INJ/PF 20 MG/2 ML SDV IV SCH ×2 (09:41→21:54)
--- NOTE | 2018-03-28 15:58 | PDOC PROGRESS REPORT ---
Subjective Progress Note for:: 03/28/18 Subjective:: + flatus and BM Reason For Visit: PERFORATED CECUM,RETROPERITONEAL ABSCESS Physical Exam Vital Signs: Temp Pulse Resp BP Pulse Ox 97.4 F 78 16 138/73 H 98 03/28/18 11:41 03/28/18 15:00 03/28/18 11:41 03/28/18 11:41 03/28/18 11:41 Intake & Output 03/27/18 03/28/18 03/29/18 06:59 06:59 06:59 Intake Total 2974 2956 74 Output Total 1970 1736 Balance 1004 1220 74 Weight 67.7 kg 66.5 kg Exam: Abd is slightly distended but soft with mild tenderness. Incision dressing is dry with small bloody stain inferior aspect. NGT drainage about 200 ccs since this am. Results Laboratory Results: 03/27/18 04:15 03/27/18 04:15 Impressions: Abdomen/Pelvis CT 03/25/18 00:00 IMPRESSION: On the right retroperitoneal air and fluid is seen posterior to the right colon and cecum, extending upward to the posterior aspect the liver. More focal 5.3 x 3.5 cm collection inferiorly. Right basilar RLL infiltrate and small right pleural effusion. Chest X-Ray 03/25/18 09:28 IMPRESSION: The lung haynes are clear. Assessment & Plan - Time Time Spent with patient: 15-24 minutes - Plan Summary Plan Summary: Possible D/C NGT later today if NGT drainage not >200. Continue hydration and IV antibiotics. Recheck CBC BMP in am
[2018-03-29] MEDS: PIPERACILLIN SODIUM/TAZOBACTAM 3.375 GM in NORMAL SALINE 100 ML IV SCH ×5 (00:10→23:07)
[2018-03-29] MEDS: METOPROLOL TARTRATE PF/INJ 5 MG/5 ML SDV IV SCH ×5 (00:11→23:03)
[2018-03-29] MEDS: KETOROLAC TROMETHAMINE INJ/PF 30 MG/1 ML SDV IV PRN ×2 (00:11→21:03)
[2018-03-29] MEDS: RINGERS SOLUTION,LACTATED 1,000 ML IV PRN ×3 (03:26→23:08)
[2018-03-29 04:01] LABS: ABSOLUTE BASOPHILS # (AUTO) 0.1 10^3/uL (0.0-0.2); ABSOLUTE EOSINOPHILS # (AUTO) 0.2 10^3/uL (0.0-0.6); ABSOLUTE LYMPHOCYTES (AUTO) 0.9 10^3/uL (0.5-4.7); ABSOLUTE MONOCYTES (AUTO) 0.7 10^3/uL (0.1-1.4); ABSOLUTE NEUT (AUTO) 11.8 10^3/uL (1.7-8.2); BASOPHILS % (AUTO) 0.5 % (0-2); EOSINOPHILS % (AUTO) 1.6 % (0-6); HEMATOCRIT 30.5 % (37.9-51.0); HEMOGLOBIN 10.3 g/dL (13.5-17.0); LYMPHOCYTES % (AUTO) 6.6 % (13-45); MEAN CORPUSCULAR HEMOGLOBIN 31.6 pg (27.0-33.4); MEAN CORPUSCULAR HGB CONC 33.7 g/dL (32.0-36.0); MEAN CORPUSCULAR VOLUME 94 fl (80-97); MONOCYTES % (AUTO) 4.9 % (3-13); PLATELET COUNT 500 10^3/uL (150-450); RED BLOOD COUNT 3.26 10^6/uL (4.35-5.55); RED CELL DISTRIBUTION WIDTH 14.7 % (11.5-14.0); SEGMENTED NEUTROPHILS % (AUTO) 86.4 % (42-78); TOTAL CELLS COUNTED % (AUTO) 100 %; WHITE BLOOD COUNT 13.7 10^3/uL (4.0-10.5)
[2018-03-29 04:21] LABS: ANION GAP 13 (5-19); BLOOD UREA NITROGEN 23 mg/dL (7-20); CALCIUM 8.3 mg/dL (8.4-10.2); CARBON DIOXIDE 19 mmol/L (22-30); CHLORIDE 114 mmol/L (98-107); GLUCOSE 109 mg/dL (75-110); POTASSIUM 4.1 mmol/L (3.6-5.0); SODIUM 146.3 mmol/L (137-145)
[2018-03-29] MEDS: HYDROMORPHONE HCL INJ/PF 2 MG/ML AMPULE IV PRN ×4 (05:26→23:08)
[2018-03-29] MEDS: ENOXAPARIN SODIUM INJ 40 MG/0.4 ML DISP.SYRIN SUBCUT SCH (09:53)
[2018-03-29] MEDS: FAMOTIDINE INJ/PF 20 MG/2 ML SDV IV SCH ×2 (09:54→21:03)
--- NOTE | 2018-03-29 14:25 | PDOC PROGRESS REPORT ---
Subjective Progress Note for:: 03/29/18 Subjective:: mild abdominal pains +BM Reason For Visit: PERFORATED CECUM,RETROPERITONEAL ABSCESS Physical Exam Vital Signs: Temp Pulse Resp BP Pulse Ox 97.9 F 69 23 H 138/72 H 94 03/29/18 12:00 03/29/18 07:23 03/29/18 04:00 03/29/18 11:23 03/29/18 08:11 Intake & Output 03/28/18 03/29/18 03/30/18 06:59 06:59 06:59 Intake Total 2956 4536 Output Total 1736 1310 0 Balance 1220 3226 0 Weight 66.5 kg 65.6 kg Exam: abd is mildly distended but soft with minimal incisional tenderness. NGT small drainage-Pulled out RAMILA drain no drainage-Pulled out Results Laboratory Results: 03/29/18 03:42 03/29/18 03:42 03/29/18 03/29/18 03:42 03:42 WBC 13.7 H RBC 3.26 L Hgb 10.3 L Hct 30.5 L MCV 94 MCH 31.6 MCHC 33.7 RDW 14.7 H Plt Count 500 H Seg Neutrophils % 86.4 H Lymphocytes % 6.6 L Monocytes % 4.9 Eosinophils % 1.6 Basophils % 0.5 Absolute Neutrophils 11.8 H Absolute Lymphocytes 0.9 Absolute Monocytes 0.7 Absolute Eosinophils 0.2 Absolute Basophils 0.1 Sodium 146.3 H Potassium 4.1 Chloride 114 H Carbon Dioxide 19 L Anion Gap 13 BUN 23 H Creatinine 1.36 H Est GFR ( Amer) > 60 Est GFR (Non-Af Amer) 53 L Glucose 109 Calcium 8.3 L Impressions: Abdomen/Pelvis CT 03/25/18 00:00 IMPRESSION: On the right retroperitoneal air and fluid is seen posterior to the right colon and cecum, extending upward to the posterior aspect the liver. More focal 5.3 x 3.5 cm collection inferiorly. Right basilar RLL infiltrate and small right pleural effusion. Chest X-Ray 03/25/18 09:28 IMPRESSION: The lung haynes are clear. Assessment & Plan - Time Time Spent with patient: 15-24 minutes - Plan Summary Plan Summary: Start Clears OOB ambulate Continue IV antibiotics
[2018-03-30] MEDS: HYDROMORPHONE HCL INJ/PF 2 MG/ML AMPULE IV PRN ×3 (03:26→22:18)
[2018-03-30] MEDS: METOPROLOL TARTRATE PF/INJ 5 MG/5 ML SDV IV SCH ×4 (05:21→23:24)
[2018-03-30] MEDS: PIPERACILLIN SODIUM/TAZOBACTAM 3.375 GM in NORMAL SALINE 100 ML IV SCH ×4 (05:22→23:26)
--- NOTE | 2018-03-30 07:26 | RADIOLOGY REPORT (SQ) ---
EXAM DESCRIPTION: XR ABDOMEN 1 VIEW (KUB) CLINICAL HISTORY: 62 years Male, Increased flank pain COMPARISON: None. NUMBER OF VIEWS/TECHNIQUE: 1 FINDINGS: Moderate gaseous small bowel dilation predominantly in the left paracentral abdomen measuring up to 3.5 cm in diameter. No suspicious calcification. Midline surgical clips. Atherosclerosis. Grossly intact skeletal structures. IMPRESSION: Small bowel ileus pattern; differential diagnosis includes low-grade obstruction.
[2018-03-30] MEDS: RINGERS SOLUTION,LACTATED 1,000 ML IV PRN ×2 (08:21→20:32)
[2018-03-30 08:53] LABS: HEMATOCRIT 30.7 % (37.9-51.0); HEMOGLOBIN 10.3 g/dL (13.5-17.0); MEAN CORPUSCULAR HEMOGLOBIN 31.1 pg (27.0-33.4); MEAN CORPUSCULAR HGB CONC 33.6 g/dL (32.0-36.0); MEAN CORPUSCULAR VOLUME 93 fl (80-97); PLATELET COUNT 627 10^3/uL (150-450); RED BLOOD COUNT 3.32 10^6/uL (4.35-5.55); RED CELL DISTRIBUTION WIDTH 14.6 % (11.5-14.0); WHITE BLOOD COUNT 11.9 10^3/uL (4.0-10.5)
[2018-03-30 09:11] LABS: ALANINE AMINOTRANSFERASE 44 U/L (21-72); ALBUMIN 2.5 g/dL (3.5-5.0); ALKALINE PHOSPHATASE 141 U/L (38-126); ANION GAP 10 (5-19); ASPARTATE AMINO TRANSFERASE 50 U/L (17-59); BILIRUBIN,DIRECT 1.3 mg/dL (0.0-0.4); BILIRUBIN,TOTAL 1.6 mg/dL (0.2-1.3); BLOOD UREA NITROGEN 15 mg/dL (7-20); CARBON DIOXIDE 22 mmol/L (22-30); CHLORIDE 109 mmol/L (98-107); GLUCOSE 139 mg/dL (75-110); POTASSIUM 3.9 mmol/L (3.6-5.0); TOTAL PROTEIN 5.7 g/dL (6.3-8.2)
[2018-03-30 09:21] LABS: ABSOLUTE LYMPHOCYTES# (MANUAL) 0.8 10^3/uL (0.5-4.7); ABSOLUTE MONOCYTES # (MANUAL) 0.6 10^3/uL (0.1-1.4); ABSOLUTE NEUTROPHILS# (MANUAL) 10.2 10^3/uL (1.7-8.2); BASOPHILS % (MANUAL) 0 % (0-2); EOSINOPHILS % (MANUAL) 2 % (0-6); HYPOCHROMASIA 1+; LYMPHOCYTES % (MANUAL) 6 % (13-45); METAMYELOCYTES % (MANUAL) 1 % (0); MONOCYTES % (MANUAL) 5 % (3-13); PLATELET CLUMPS PRESENT; SEGMENTED NEUTROPHILS % (MAN) 85 % (42-78); STOMATOCYTES 1+; TOTAL CELLS COUNTED 100; TOXIC GRANULATION SLIGHT
[2018-03-30] MEDS: FAMOTIDINE INJ/PF 20 MG/2 ML SDV IV SCH ×2 (09:23→22:18)
[2018-03-30] MEDS: ENOXAPARIN SODIUM INJ 40 MG/0.4 ML DISP.SYRIN SUBCUT SCH (09:23)
[2018-03-30] MEDS: KETOROLAC TROMETHAMINE INJ/PF 30 MG/1 ML SDV IV PRN ×2 (09:47→20:31)
--- NOTE | 2018-03-30 10:04 | PDOC PROGRESS REPORT ---
Subjective Progress Note for:: 03/30/18 Subjective:: Postoperative day 5; still in the ICU; transferring bed to chair; was tolerating a diet but now feels full. Reason For Visit: PERFORATED CECUM,RETROPERITONEAL ABSCESS Physical Exam Vital Signs: Temp Pulse Resp BP Pulse Ox 100.5 F H 89 18 150/85 H 95 03/30/18 08:00 03/30/18 08:14 03/30/18 08:03 03/30/18 08:03 03/30/18 08:03 Intake & Output 03/29/18 03/30/18 03/31/18 06:59 06:59 06:59 Intake Total 4536 2973 350 Output Total 1310 825 125 Balance 3226 2148 225 Weight 65.6 kg 69.2 kg General appearance: PRESENT: mild distress, other - Awake alert oriented, anxious GI/Abdominal exam: PRESENT: other - Distended, tympanitic appropriately tender no peritoneal signs no rigidity midline dressing in the right lower quadrant drain sites look satisfactory. Results Laboratory Results: 03/30/18 08:37 03/30/18 08:37 03/30/18 03/30/18 08:37 08:37 WBC 11.9 H RBC 3.32 L Hgb 10.3 L Hct 30.7 L MCV 93 MCH 31.1 MCHC 33.6 RDW 14.6 H Plt Count 627 H Seg Neutrophils % Not Reportable Lymphocytes % Not Reportable Monocytes % Not Reportable Eosinophils % Not Reportable Basophils % Not Reportable Absolute Neutrophils Not Reportable Absolute Lymphocytes Not Reportable Absolute Monocytes Not Reportable Absolute Eosinophils Not Reportable Absolute Basophils Not Reportable Sodium 141.0 Potassium 3.9 Chloride 109 H Carbon Dioxide 22 Anion Gap 10 BUN 15 Creatinine 1.23 Est GFR ( Amer) > 60 Est GFR (Non-Af Amer) > 60 Glucose 139 H Calcium 8.0 L Total Bilirubin 1.6 H AST 50 ALT 44 Alkaline Phosphatase 141 H Total Protein 5.7 L Albumin 2.5 L Impressions: Abdomen/Pelvis CT 03/25/18 00:00 IMPRESSION: On the right retroperitoneal air and fluid is seen posterior to the right colon and cecum, extending upward to the posterior aspect the liver. More focal 5.3 x 3.5 cm collection inferiorly. Right basilar RLL infiltrate and small right pleural effusion. Chest X-Ray 03/25/18 09:28 IMPRESSION: The lung haynes are clear. KUB X-Ray 03/30/18 06:00 IMPRESSION: Small bowel ileus pattern; differential diagnosis includes low-grade obstruction. Assessment & Plan - Diagnosis (1) Perforated appendicitis Is this a current diagnosis for this admission?: Yes Plan: Right hemicolectomy with ileal- colostomy, stapled anastomosis, peritoneal washout, drain placement, now with drain removed, still on IV antibiotics, leukocytosis resolving, hyperbilirubinemia resolving; mild thrombocytosis Postoperative ileus Recommendations: 1. Address ileus by increasing physical activity, decreasing narcotic use, increasing Toradol use. 2. We will start low molecular weight heparin daily to address thrombocytosis 3. Patient safe for transfer to stepdown unit.
[2018-03-30] MEDS ORDERED: FUROSEMIDE INJ/PF 20 MG/2 ML SDV IV ONE (13:30)
[2018-03-30] MEDS: ACETAMINOPHEN SOLN 325 MG/10.15 ML UDCUP PO PRN (16:56)
[2018-03-31] MEDS: HYDROMORPHONE HCL INJ/PF 2 MG/ML AMPULE IV PRN ×2 (02:33→05:30)
[2018-03-31] MEDS: KETOROLAC TROMETHAMINE INJ/PF 30 MG/1 ML SDV IV PRN ×3 (04:25→22:07)
[2018-03-31] MEDS: PIPERACILLIN SODIUM/TAZOBACTAM 3.375 GM in NORMAL SALINE 100 ML IV SCH ×4 (05:30→23:04)
[2018-03-31] MEDS: METOPROLOL TARTRATE PF/INJ 5 MG/5 ML SDV IV SCH (05:30)
[2018-03-31] MEDS: FAMOTIDINE INJ/PF 20 MG/2 ML SDV IV SCH ×2 (09:13→21:47)
[2018-03-31] MEDS: ENOXAPARIN SODIUM INJ 40 MG/0.4 ML DISP.SYRIN SUBCUT SCH (09:13)
[2018-03-31] MEDS: DOCUSATE SODIUM 100 MG CAPSULE PO SCH ×2 (10:14→17:27)
[2018-03-31] MEDS: RINGERS SOLUTION,LACTATED 1,000 ML IV PRN ×2 (10:16→21:46)
--- NOTE | 2018-03-31 10:45 | RADIOLOGY REPORT (SQ) ---
EXAM DESCRIPTION: KUB/ABDOMEN (SINGLE VIEW) COMPLETED DATE/TIME: 03/31/2018 10:25 am REASON FOR STUDY: distention COMPARISON: 03/30/2018 NUMBER OF VIEWS: One view. TECHNIQUE: Supine radiographic image of the abdomen acquired. LIMITATIONS: None. FINDINGS: BOWEL GAS PATTERN: Persistent mildly dilated loops of small bowel primarily left upper aubrie drant. There is gas and fecal material in the colon. CALCIFICATIONS: No suspicious calcifications. SOFT TISSUES: No gross mass or suggestion of organomegaly. HARDWARE: Midline skin shari. BONES: No bone lesions or fracture. OTHER: No other significant finding. IMPRESSION: Postoperative ileus. Continued follow-up is recommended. Reading location - IP/workstation name: [email or web address]
--- NOTE | 2018-03-31 12:09 | PDOC PROGRESS REPORT ---
Subjective Progress Note for:: 03/31/18 Reason For Visit: PERFORATED CECUM,RETROPERITONEAL ABSCESS Physical Exam Vital Signs: Temp Pulse Resp BP Pulse Ox 97.5 F 81 18 137/64 H 98 03/31/18 11:20 03/31/18 11:20 03/31/18 11:20 03/31/18 11:20 03/31/18 11:20 Intake & Output 03/30/18 03/31/18 04/01/18 06:59 06:59 06:59 Intake Total 2973 2981 Output Total 825 1050 Balance 2148 1931 Weight 69.2 kg 71.8 kg Results Laboratory Results: 03/30/18 08:37 03/30/18 08:37 Impressions: Abdomen/Pelvis CT 03/25/18 00:00 IMPRESSION: On the right retroperitoneal air and fluid is seen posterior to the right colon and cecum, extending upward to the posterior aspect the liver. More focal 5.3 x 3.5 cm collection inferiorly. Right basilar RLL infiltrate and small right pleural effusion. Chest X-Ray 03/25/18 09:28 IMPRESSION: The lung haynes are clear. KUB X-Ray 03/31/18 00:00 IMPRESSION: Postoperative ileus. Continued follow-up is recommended. Assessment & Plan - Diagnosis (1) Perforated appendicitis Is this a current diagnosis for this admission?: Yes - Plan Summary Plan Summary: This is a 62-year-old male status post right hemicolectomy for perforated appendicitis with a large retroperitoneal abscess. The patient is improving. He reports that his abdominal distention has lessened. He reports having 2 bowel movements overnight and passing "lots of gas ". The patient is requesting a diet today. He denies any nausea or vomiting. I will advance the patient to a full liquid diet. I have encouraged ambulation and pulmonary toilet. Change midline dressing daily and as needed.
[2018-03-31] MEDS: HYDROCODONE/ACETAMINOPHEN 10-325 MG TABLET PO PRN ×3 (12:46→23:04)
[2018-03-31] MEDS: ATENOLOL 50 MG TABLET PO SCH (12:47)
[2018-04-01] MEDS: HYDROCODONE/ACETAMINOPHEN 10-325 MG TABLET PO PRN ×3 (02:41→20:28)
[2018-04-01] MEDS: PIPERACILLIN SODIUM/TAZOBACTAM 3.375 GM in NORMAL SALINE 100 ML IV SCH ×2 (05:21→12:56)
[2018-04-01 05:29] LABS: HEMATOCRIT 27.4 % (37.9-51.0); HEMOGLOBIN 9.3 g/dL (13.5-17.0); MEAN CORPUSCULAR HEMOGLOBIN 31.1 pg (27.0-33.4); MEAN CORPUSCULAR HGB CONC 33.8 g/dL (32.0-36.0); MEAN CORPUSCULAR VOLUME 92 fl (80-97); PLATELET COUNT 640 10^3/uL (150-450); RED BLOOD COUNT 2.97 10^6/uL (4.35-5.55); RED CELL DISTRIBUTION WIDTH 14.5 % (11.5-14.0); WHITE BLOOD COUNT 10.9 10^3/uL (4.0-10.5)
[2018-04-01 05:46] LABS: ANION GAP 11 (5-19); BLOOD UREA NITROGEN 11 mg/dL (7-20); CALCIUM 7.9 mg/dL (8.4-10.2); CARBON DIOXIDE 23 mmol/L (22-30); CHLORIDE 106 mmol/L (98-107); GLUCOSE 131 mg/dL (75-110); POTASSIUM 4.2 mmol/L (3.6-5.0); SODIUM 139.7 mmol/L (137-145)
[2018-04-01 06:04] LABS: ABSOLUTE LYMPHOCYTES# (MANUAL) 0.7 10^3/uL (0.5-4.7); ABSOLUTE MONOCYTES # (MANUAL) 0.4 10^3/uL (0.1-1.4); ABSOLUTE NEUTROPHILS# (MANUAL) 9.7 10^3/uL (1.7-8.2); BAND NEUTROPHILS % (MANUAL) 2 % (3-5); BASOPHILS % (MANUAL) 0 % (0-2); EOSINOPHILS % (MANUAL) 1 % (0-6); LYMPHOCYTES % (MANUAL) 6 % (13-45); METAMYELOCYTES % (MANUAL) 2 % (0); MONOCYTES % (MANUAL) 4 % (3-13); SEGMENTED NEUTROPHILS % (MAN) 85 % (42-78); TOTAL CELLS COUNTED 100
[2018-04-01 06:06] LABS: ANISOCYTOSIS SLIGHT; HYPOCHROMASIA SLIGHT; TOXIC GRANULATION SLIGHT
[2018-04-01 06:07] LABS: PLATELET COMMENT INCREASED
[2018-04-01] MEDS: KETOROLAC TROMETHAMINE INJ/PF 30 MG/1 ML SDV IV PRN ×2 (08:48→16:53)
[2018-04-01] MEDS ORDERED: DIPHENHYDRAMINE HCL 50 MG/ML VIAL IV PRN (08:56)
[2018-04-01] MEDS ORDERED: FUROSEMIDE INJ/PF 40 MG/4 ML SDV IV ONE (09:15)
[2018-04-01] MEDS ORDERED: ONDANSETRON HCL INJ/PF 4 MG/2 ML SDV IV PRN (09:30)
[2018-04-01] MEDS: ENOXAPARIN SODIUM INJ 40 MG/0.4 ML DISP.SYRIN SUBCUT SCH (09:40)
[2018-04-01] MEDS: FAMOTIDINE INJ/PF 20 MG/2 ML SDV IV SCH ×2 (09:40→21:19)
[2018-04-01] MEDS: DOCUSATE SODIUM 100 MG CAPSULE PO SCH ×2 (09:40→17:25)
[2018-04-01] MEDS: ATENOLOL 50 MG TABLET PO SCH (12:56)
--- NOTE | 2018-04-01 16:57 | PDOC PROGRESS REPORT ---
Subjective Progress Note for:: 04/01/18 Subjective:: denies any pains. + BM Reason For Visit: PERFORATED CECUM,RETROPERITONEAL ABSCESS Physical Exam Vital Signs: Temp Pulse Resp BP Pulse Ox 98.4 F 80 16 135/73 H 100 04/01/18 11:55 04/01/18 11:55 04/01/18 11:55 04/01/18 11:55 04/01/18 11:55 Intake & Output 03/31/18 04/01/18 04/02/18 06:59 06:59 06:59 Intake Total 2981 2830 Output Total 1050 Balance 1931 2830 Weight 71.8 kg 74.8 kg Exam: abd is still distended but soft and non tender Results Laboratory Results: 04/01/18 05:08 04/01/18 05:08 04/01/18 04/01/18 05:08 05:08 WBC 10.9 H RBC 2.97 L Hgb 9.3 L Hct 27.4 L MCV 92 MCH 31.1 MCHC 33.8 RDW 14.5 H Plt Count 640 H Seg Neutrophils % Not Reportable Lymphocytes % Not Reportable Monocytes % Not Reportable Eosinophils % Not Reportable Basophils % Not Reportable Absolute Neutrophils Not Reportable Absolute Lymphocytes Not Reportable Absolute Monocytes Not Reportable Absolute Eosinophils Not Reportable Absolute Basophils Not Reportable Sodium 139.7 Potassium 4.2 Chloride 106 Carbon Dioxide 23 Anion Gap 11 BUN 11 Creatinine 1.09 Est GFR ( Amer) > 60 Est GFR (Non-Af Amer) > 60 Glucose 131 H Calcium 7.9 L Impressions: Abdomen/Pelvis CT 03/25/18 00:00 IMPRESSION: On the right retroperitoneal air and fluid is seen posterior to the right colon and cecum, extending upward to the posterior aspect the liver. More focal 5.3 x 3.5 cm collection inferiorly. Right basilar RLL infiltrate and small right pleural effusion. Chest X-Ray 03/25/18 09:28 IMPRESSION: The lung haynes are clear. KUB X-Ray 03/31/18 00:00 IMPRESSION: Postoperative ileus. Continued follow-up is recommended. Assessment & Plan - Time Time Spent with patient: 15-24 minutes - Plan Summary Plan Summary: He still has evidence of fluid overload with some lower ext edema and penile edema. Will give one dose of lasix Continue full liquids . Bowel function not completely back. Will get to ambulate. continue IV antibiotics
[2018-04-02] MEDS: KETOROLAC TROMETHAMINE INJ/PF 30 MG/1 ML SDV IV PRN ×4 (01:27→23:05)
[2018-04-02] MEDS: HYDROCODONE/ACETAMINOPHEN 10-325 MG TABLET PO PRN ×4 (02:11→21:00)
[2018-04-02 05:29] LABS: ANION GAP 8 (5-19); BLOOD UREA NITROGEN 12 mg/dL (7-20); CALCIUM 7.9 mg/dL (8.4-10.2); CARBON DIOXIDE 25 mmol/L (22-30); CHLORIDE 105 mmol/L (98-107); GLUCOSE 120 mg/dL (75-110); POTASSIUM 4.6 mmol/L (3.6-5.0); SODIUM 138.4 mmol/L (137-145)
[2018-04-02 05:33] LABS: HEMATOCRIT 25.1 % (37.9-51.0); HEMOGLOBIN 8.7 g/dL (13.5-17.0); MEAN CORPUSCULAR HEMOGLOBIN 31.7 pg (27.0-33.4); MEAN CORPUSCULAR HGB CONC 34.5 g/dL (32.0-36.0); MEAN CORPUSCULAR VOLUME 92 fl (80-97); PLATELET COUNT 698 10^3/uL (150-450); RED BLOOD COUNT 2.73 10^6/uL (4.35-5.55); RED CELL DISTRIBUTION WIDTH 14.6 % (11.5-14.0); WHITE BLOOD COUNT 10.3 10^3/uL (4.0-10.5)
[2018-04-02 06:01] LABS: ABSOLUTE LYMPHOCYTES# (MANUAL) 1.6 10^3/uL (0.5-4.7); ABSOLUTE MONOCYTES # (MANUAL) 0.7 10^3/uL (0.1-1.4); ABSOLUTE NEUTROPHILS# (MANUAL) 7.7 10^3/uL (1.7-8.2); BASOPHILS % (MANUAL) 1 % (0-2); EOSINOPHILS % (MANUAL) 1 % (0-6); LYMPHOCYTES % (MANUAL) 15 % (13-45); MONOCYTES % (MANUAL) 7 % (3-13); SEGMENTED NEUTROPHILS % (MAN) 62 % (42-78); TOTAL CELLS COUNTED 100
[2018-04-02 06:04] LABS: HYPOCHROMASIA 2+
[2018-04-02 06:05] LABS: TOXIC GRANULATION 1+
[2018-04-02 06:08] LABS: PLATELET COMMENT INCREASED
[2018-04-02] MEDS: ENOXAPARIN SODIUM INJ 40 MG/0.4 ML DISP.SYRIN SUBCUT SCH (09:24)
[2018-04-02] MEDS: FAMOTIDINE INJ/PF 20 MG/2 ML SDV IV SCH ×2 (09:24→20:59)
[2018-04-02] MEDS: DOCUSATE SODIUM 100 MG CAPSULE PO SCH ×2 (09:24→17:08)
--- NOTE | 2018-04-02 11:59 | PDOC PROGRESS REPORT ---
Subjective Progress Note for:: 04/02/18 Subjective:: no pains. Having loose stools Able to sleep well last night Reason For Visit: PERFORATED CECUM,RETROPERITONEAL ABSCESS Physical Exam Vital Signs: Temp Pulse Resp BP Pulse Ox 98.5 F 84 16 140/68 H 94 04/02/18 08:27 04/02/18 08:27 04/02/18 08:27 04/02/18 08:27 04/02/18 08:27 Intake & Output 04/01/18 04/02/18 04/03/18 06:59 06:59 06:59 Intake Total 2830 1856 Output Total 600 Balance 2830 1256 Weight 74.8 kg 73.9 kg Exam: Abd is soft with mild distention, non tender Results Laboratory Results: 04/02/18 04:47 04/02/18 04:47 04/02/18 04/02/18 04:47 04:47 WBC 10.3 RBC 2.73 L Hgb 8.7 L Hct 25.1 L MCV 92 MCH 31.7 MCHC 34.5 RDW 14.6 H Plt Count 698 H Seg Neutrophils % Not Reportable Lymphocytes % Not Reportable Monocytes % Not Reportable Eosinophils % Not Reportable Basophils % Not Reportable Absolute Neutrophils Not Reportable Absolute Lymphocytes Not Reportable Absolute Monocytes Not Reportable Absolute Eosinophils Not Reportable Absolute Basophils Not Reportable Sodium 138.4 Potassium 4.6 Chloride 105 Carbon Dioxide 25 Anion Gap 8 BUN 12 Creatinine 1.23 Est GFR ( Amer) > 60 Est GFR (Non-Af Amer) > 60 Glucose 120 H Calcium 7.9 L Impressions: Abdomen/Pelvis CT 03/25/18 00:00 IMPRESSION: On the right retroperitoneal air and fluid is seen posterior to the right colon and cecum, extending upward to the posterior aspect the liver. More focal 5.3 x 3.5 cm collection inferiorly. Right basilar RLL infiltrate and small right pleural effusion. Chest X-Ray 03/25/18 09:28 IMPRESSION: The lung haynes are clear. KUB X-Ray 03/31/18 00:00 IMPRESSION: Postoperative ileus. Continued follow-up is recommended. Assessment & Plan - Time Time Spent with patient: 15-24 minutes - Plan Summary Plan Summary: Check stools for C diff Increase to soft diet Possible discharge in 24-48 hrs Continue ambulate Continue IV antibiotics 24-48 hrs.
[2018-04-02] MEDS: ATENOLOL 50 MG TABLET PO SCH (12:52)
[2018-04-02] MEDS: DIPHENHYDRAMINE HCL 50 MG/ML VIAL IV SCH (21:00)
[2018-04-03] MEDS: HYDROCODONE/ACETAMINOPHEN 10-325 MG TABLET PO PRN ×2 (02:50→09:35)
[2018-04-03] MEDS: KETOROLAC TROMETHAMINE INJ/PF 30 MG/1 ML SDV IV PRN (06:38)
[2018-04-03] MEDS: FAMOTIDINE INJ/PF 20 MG/2 ML SDV IV SCH ×2 (09:36→22:07)
[2018-04-03] MEDS: ENOXAPARIN SODIUM INJ 40 MG/0.4 ML DISP.SYRIN SUBCUT SCH (09:36)
[2018-04-03] MEDS: DOCUSATE SODIUM 100 MG CAPSULE PO SCH ×2 (09:37→18:35)
[2018-04-03 09:56] LABS: BAND NEUTROPHILS % (MANUAL) 13 % (3-5)
[2018-04-03] MEDS: ATENOLOL 50 MG TABLET PO SCH (12:09)
[2018-04-03] MEDS: OXYCODONE HCL IR 5 MG TABLET PO PRN ×2 (16:25→22:07)
--- NOTE | 2018-04-03 18:43 | PDOC PROGRESS REPORT ---
Subjective Progress Note for:: 04/03/18 Reason For Visit: PERFORATED CECUM,RETROPERITONEAL ABSCESS Physical Exam Vital Signs: Temp Pulse Resp BP Pulse Ox 99.5 F 82 16 146/72 H 95 04/03/18 11:09 04/03/18 11:09 04/03/18 11:09 04/03/18 11:09 04/03/18 11:09 Intake & Output 04/02/18 04/03/18 04/04/18 06:59 06:59 06:59 Intake Total 1856 2203 Output Total 600 150 Balance 1256 2053 Weight 73.9 kg 73.4 kg Results Laboratory Results: 04/02/18 04:47 04/02/18 04:47 Impressions: Abdomen/Pelvis CT 03/25/18 00:00 IMPRESSION: On the right retroperitoneal air and fluid is seen posterior to the right colon and cecum, extending upward to the posterior aspect the liver. More focal 5.3 x 3.5 cm collection inferiorly. Right basilar RLL infiltrate and small right pleural effusion. Chest X-Ray 03/25/18 09:28 IMPRESSION: The lung haynes are clear. KUB X-Ray 03/31/18 00:00 IMPRESSION: Postoperative ileus. Continued follow-up is recommended. Assessment & Plan - Diagnosis (1) Perforated appendicitis Is this a current diagnosis for this admission?: Yes - Plan Summary Plan Summary: This is a 62-year-old male status post laparotomy for perforated cecum. The patient is improving slowly. He still reports significant pain and difficulty ambulating. He still reports mild distention, but notes that he is having bowel movements and passing flatus. I have encouraged ambulation and pulmonary toilet. I have also encouraged oral intake of food and liquid. Add oral pain medications today. Plan for discharge tomorrow, if the patient continues to progress.
[2018-04-03] MEDS: DIPHENHYDRAMINE HCL 50 MG/ML VIAL IV SCH (22:07)
[2018-04-04] MEDS: OXYCODONE HCL IR 5 MG TABLET PO PRN (01:38)
--- NOTE | 2018-04-04 05:16 | PDOC DISCHARGE SUMMARY ---
General - Admit/Disc Date/PCP Admission Date/Primary Care Provider: 03/25/18 13:47 Discharge Date: 04/04/18 - Discharge Diagnosis (1) Perforated appendicitis Is this a current diagnosis for this admission?: Yes - Additional Information Resuscitation Status: Full Code Discharge Diet: As Tolerated Discharge Activity: No Lifting Over 10 Pounds - x6 weeks after surgery Home Medications: Amlodipine Besylate [Norvasc 10 mg Tablet] 10 mg PO DAILY 03/25/18 Atenolol [Tenormin 100 mg Tablet] 50 mg PO DAILY 03/25/18 Difluprednate [Durezol] 5 ml OP ASDIR PRN 03/25/18 Lisinopril [Prinivil 40 mg Tablet] 40 mg PO DAILY 03/25/18 Sulfamethoxazole/Trimethoprim [Septra-Ds 800-160 mg Tablet] 1 tab PO Q12 History of Present Illness History of Present Illness: AMALIA SMITH is a 62 year old male with a 24 hour history of right sided abdominal pain. His pain is sharp and stabbing. It is constant. The patient denies any fevers, chills, nausea, vomiting, chest pain, shortness of breath, headache, dizziness. Patient has had noted malaise and fatigue. He presented to the emergency department due to excruciating, unrelenting pain. Nothing makes his pain better. Movement and palpation make his pain worse. Hospital Course Hospital Course: The patient was taken to the operating room for exploratory laparotomy. The patient was found to have perforation of his cecum, near the base of the appendix. This was presumably from acute appendicitis. After surgery the patient was taken to the intensive care unit, where he remained for several days. Slowly, he had return of bowel function. The patient began ambulating. By 04/04/2018 the patient was ambulating, tolerating a diet, having bowel movements, and his pain was controlled with oral pain medications. At this time it was felt that he had reached maximal hospital benefit and was fit for discharge. Physical Exam Vital Signs: Temp Pulse Resp BP Pulse Ox 98.9 F 76 18 151/75 H 91 L 04/04/18 03:14 04/04/18 03:14 04/04/18 03:14 04/04/18 03:14 04/04/18 03:14 Intake & Output 04/02/18 04/03/18 04/04/18 06:59 06:59 06:59 Intake Total 1856 2202 2047 Output Total 600 150 Balance 1252052 Weight 73.9 kg 73.4 kg 70.4 kg Results Laboratory Results: 04/02/18 04:47 04/02/18 04:47 Impressions: Abdomen/Pelvis CT 03/25/18 00:00 IMPRESSION: On the right retroperitoneal air and fluid is seen posterior to the right colon and cecum, extending upward to the posterior aspect the liver. More focal 5.3 x 3.5 cm collection inferiorly. Right basilar RLL infiltrate and small right pleural effusion. Chest X-Ray 03/25/18 09:28 IMPRESSION: The lung haynes are clear. KUB X-Ray 03/31/18 00:00 IMPRESSION: Postoperative ileus. Continued follow-up is recommended. Qualifiers - * PATIENT BEING DISCHARGED WITH ANY OF THE FOLLOWING DIAGNOSIS: No Plan Time Spent: Less than 30 Minutes
[2018-04-04 08:58] VITALS: BP 163/80
[2018-04-04] MEDS: DOCUSATE SODIUM 100 MG CAPSULE PO SCH (09:20)
[2018-04-06 13:54] LABS: PATH REVIEW PATHOLOGIST REVIEWED
== END 2018-04-04 09:24 | disposition home or self-care (01) | DRG 329 ==
LOC: ER 08:58 → EH 13:47 → ICU 16:30 → 3S 03-30 23:12
PROVIDERS: ADMIT Surgery; ATTEND Surgery
PROC: 0W9H0ZZ Drainage of Retroperitoneum, Open Approach (ICD-10-PCS; 2018-03-25)
PROC: 0DTF0ZZ Resection of Right Large Intestine, Open Approach (ICD-10-PCS; principal; 2018-03-25 14:30)
DX: K35.2 Acute appendicitis with generalized peritonitis (principal); K63.1 Perforation of intestine (nontraumatic); K68.19 Other retroperitoneal abscess; K56.7 Ileus, unspecified; I10 Essential (primary) hypertension
CPT/HCPCS: 36415; 71045; 74018; 74177; 790; 80048; 80053; 80076; 81001; 82550; 82553; 82803; 83605; 84484; 85025; 85610; 86850; 86900; 86901; 87040; 87086; 87493; 88307; 93005; 93010; 96361; 96365; 96368; 96375; 99285; J0131; J0330; J0692; J1170; J1200; J1650; J1885; J1940; J2250; J2270; J2405; J2543; J2704; J3010; J3490; J7030; J7120; S0028

== ENCOUNTER 2018-06-09 06:08 | Day surgery (SDC) | payer OTHER ==
[2018-06-03 11:51] LABS: HEMATOCRIT 28.4 % (37.9-51.0); HEMOGLOBIN 9.2 g/dL (13.5-17.0); MEAN CORPUSCULAR HEMOGLOBIN 26.6 pg (27.0-33.4); MEAN CORPUSCULAR HGB CONC 32.4 g/dL (32.0-36.0); MEAN CORPUSCULAR VOLUME 82 fl (80-97); PLATELET COUNT 635 10^3/uL (150-450); RED BLOOD COUNT 3.47 10^6/uL (4.35-5.55); RED CELL DISTRIBUTION WIDTH 19.1 % (11.5-14.0); WHITE BLOOD COUNT 13.1 10^3/uL (4.0-10.5)
[~2018-06-09 06:08] MED LIST changes: +ACETAMINOPHEN 325 MG TABLET PO PRN; -GLYCOPYRROLATE INJ 0.4 MG/2 ML VIAL ONE; +LACTATED RINGERS 1000 ML IV PRN; +LIDOCAINE 0.5% INJ-PF (5 MG/ML) 50 ML SDV SUBCUT PRN; -NEOSTIGMINE METHYLSULFATE 10 MG/10 ML VIAL ONE; -ONDANSETRON HCL INJ/PF 4 MG/2 ML SDV ONE; -ROCURONIUM BROMIDE INJ 50 MG/5 ML VIAL IV ONE; -SUCCINYLCHOLINE CHLORIDE INJ 200 MG/10 ML VIAL ONE
[2018-06-09] MEDS ORDERED: PROPOFOL INJ 200 MG/20 ML VIAL IV ONE (07:17)
[2018-06-09] MEDS ORDERED: LIDOCAINE 2% INJ-PF (20 MG/ML) 10 ML AMPUL ONE (07:17)
[2018-06-09] MEDS ORDERED: DIPHENHYDRAMINE HCL 50 MG/ML VIAL IV PRN (08:19)
[2018-06-09] MEDS ORDERED: FENTANYL CITRATE INJ/PF 100 MCG/2 ML AMPUL IV PRN ×3 (08:19)
[2018-06-09] MEDS ORDERED: PROMETHAZINE HCL INJ 25 MG/1 ML VIAL IV PRN ×2 (08:19)
--- NOTE | 2018-06-09 09:04 | Discharge Summary ---
Discharge Summary (SDC) - Discharge Final Diagnosis: Diverticulosis, internal hemorrhoids. Date of Surgery: 06/09/18 Discharge Date: 06/09/18 Condition: Stable Referrals: ELISE MATIAS PA [Primary Care Provider] - Discharge Diet: As Tolerated Respiratory Treatments at Home: Deep Breathing/Coughing, Incentive Spirometer Discharge Activity: Activity As Tolerated Home Care Assistance: None Needed Report the Following to Your Physician Immediately: Shortness of Breath, Nausea , Vomiting, Increase in Pain, Fever over 101 Degrees, Unusual Bleeding
--- NOTE | 2018-06-09 09:08 | Operative Report ---
Nonrecallable Operative Report DATE OF SURGERY: 06/09/18 PREOPERATIVE DIAGNOSIS: History of colonic perforation POSTOPERATIVE DIAGNOSIS: 1. Diverticulosis. 2. Internal hemorrhoids OPERATION: Colonoscopy to ileocolic anastomosis. SURGEON: FAIZA WHITE ANESTHESIA: LMAC TISSUE REMOVED OR ALTERED: None COMPLICATIONS: None apparent ESTIMATED BLOOD LOSS: None PROCEDURE: Drains/implants: None. Procedure in detail: After informed consent was obtained, the patient was brought into the operating room and laid in the left lateral decubitus position. The scope was inserted up the rectum, sigmoid colon, descending colon , across the transverse colon, to the ileocolic anastomosis. Small bowel was visually identified. The scope was then withdrawn, circumferentially noting the mucosa. The prep was fair. Multiple washings and suctionings were required in order to visualize the entirety of the mucosa. This was successful. Scope was pulled back past the transverse colon, down the descending colon, sigmoid colon, and into the rectum. Throughout the descending and sigmoid colon, there were multiple scattered diverticula. There is no sign of active diverticulitis. A retroflexion maneuver was performed in the rectum. Small to moderate size internal hemorrhoids were identified. The scope was then straightened, air was suctioned from the rectum, the scope was removed, and the procedure was concluded. Please note there were no masses, lesions, tumors, polyps, strictures, or other abnormalities aside from the above -mentioned reticulosis and hemorrhoids. Condition: Stable.
[2018-06-09 10:04] VITALS: BP 131/77
== END 2018-06-09 10:16 | disposition home or self-care (01) ==
LOC: END 06:08
PROVIDERS: ATTEND Surgery
DX: K57.20 Diverticulitis of large intestine with perforation and abscess without bleeding (principal); K64.8 Other hemorrhoids; E78.00 Pure hypercholesterolemia, unspecified; I10 Essential (primary) hypertension; Z90.49 Acquired absence of other specified parts of digestive tract; Z87.891 Personal history of nicotine dependence; Z79.899 Other long term (current) drug therapy
CPT/HCPCS: 45378; 36415; 85027; J2704; J3490; 811

== ENCOUNTER → 2019-03-06 | Outpatient (CLI) | payer OTHER ==
[2019-03-06 10:17] LABS: ANION GAP 14 (5-19); BLOOD UREA NITROGEN 28 mg/dL (7-20); CALCIUM 9.3 mg/dL (8.4-10.2); CARBON DIOXIDE 20 mmol/L (22-30); CHLORIDE 105 mmol/L (98-107); GLUCOSE 98 mg/dL (75-110); SODIUM 138.6 mmol/L (137-145)
--- NOTE | 2019-03-06 11:11 | EKG REPORT ---
SEVERITY:- ABNORMAL ECG - SINUS RHYTHM PROBABLE LVH WITH SECONDARY REPOL ABNRM : Confirmed by: Romel Batista 06-Mar-2019 11:10:47
== END ==
LOC: OD 08:34
PROVIDERS: ATTEND Orthopaedic Surgery
DX: S44.02XA Injury of ulnar nerve at upper arm level, left arm, initial encounter (principal)
CPT/HCPCS: 36415; 80048; 93005; 93010

== ENCOUNTER → 2019-04-13 | Outpatient (CLI) | payer OTHER ==
[2019-04-13 10:24] LABS: ANION GAP 10 (5-19); BLOOD UREA NITROGEN 22 mg/dL (7-20); CALCIUM 9.3 mg/dL (8.4-10.2); CARBON DIOXIDE 25 mmol/L (22-30); CHLORIDE 104 mmol/L (98-107); GLUCOSE 125 mg/dL (75-110); POTASSIUM 5.7 mmol/L (3.6-5.0); SODIUM 139.3 mmol/L (137-145)
== END ==
LOC: OD 09:19
PROVIDERS: ATTEND Orthopaedic Surgery
DX: S44.02XA Injury of ulnar nerve at upper arm level, left arm, initial encounter (principal); X58.XXXA Exposure to other specified factors, initial encounter
CPT/HCPCS: 36415; 80048